=== PATIENT | female | born 1995 | race Asian ===

== ENCOUNTER 2020-03-01 16:17 | Emergency (ER) | payer OTHER ==
[2020-03-01 16:55] LABS: GLUCOSE, URINE (UA) NEGATIVE (NEGATIVE); KETONES,URINE (UA) NEGATIVE (NEGATIVE); LEUKOCYTE ESTERASE, URINE MODERATE (NEGATIVE); NITRITE,URINE POSITIVE (NEGATIVE); OCCULT BLOOD,URINE LARGE (NEGATIVE); PROTEIN,URINE >=300 mg/dL (NEGATIVE); UROBILINOGEN,URINE 2 E.U./dL (NORMAL)
[2020-03-01 17:05] LABS: BILIRUBIN,URINE NEGATIVE (NEGATIVE); ICTOTEST,URINE NEGATIVE
[2020-03-01 17:06] LABS: BACTERIA,URINE Rare /HPF (None Seen); CLARITY,URINE BLOODY (CLEAR); HCG UR QUAL POSITIVE; RBC,URINE TNTC /HPF (0-5); SQUAMOUS EPITHELIAL CELL,UR RARE Squamous (<= Few)
--- NOTE | 2020-03-01 17:58 | ED Physician Documentation ---
PD HPI FEMALE - Stated complaint Stated Complaint: BLOOD IN URINE/15 WKS - Chief complaint Chief Complaint: Abd Pain - History obtained from History obtained from: Patient - History of Present Illness Timing - onset: Yesterday Timing - details: Abrupt onset, Still present Associated symptoms: Back pain (mild low back), Dysuria, Urinary frequency. No: Fever, Vaginal bleeding, Vaginal discharge Contributing factors: (15 weeks), Sexually active Similar symptoms before: Has not had sx before Recently seen: Not recently seen Review of Systems Constitutional: denies: Fever, Chills Nose: denies: Rhinorrhea / runny nose, Congestion Throat: denies: Sore throat Respiratory: denies: Cough GI: reports: Nausea (through the ). denies: Vomiting, Diarrhea : reports: Dysuria, Frequency. denies: Discharge, Vaginal bleeding PD PAST MEDICAL HISTORY - Past Medical History Past Medical History: No - Present Medications Home Medications: Ambulatory Orders Medication Instructions Recorded Confirmed Cephalexin [Keflex] 500 mg PO Q6H #24 capsule 03/01/20 Phenazopyridine HCl [Pyridium] 100 mg PO TID PRN #15 tablet 03/01/20 - Allergies Allergies/Adverse Reactions: Allergies Allergy/AdvReac Type Severity Reaction Status Date / Time No Known Drug Allergies Allergy Verified 03/01/20 16:31 PD ED PE NORMAL - Vitals Vital signs reviewed: Yes - General General: Alert and oriented X 3, No acute distress, Well developed/nourished - Cardiac Cardiac: RRR - Respiratory Respiratory: Clear bilaterally - Abdomen Abdomen: Soft, Non tender, Other (bedside U/S showing normal IUP with size for dates, and active movement, good FHB.) - Female Female : Deferred - Rectal Rectal: Deferred - Back Back: No CVA TTP - Derm Derm: Normal color, Warm and dry Results - Vitals Vitals: Vital Signs - 24 hr 03/01/20 03/01/20 16:31 18:17 Temperature 37.1 C Heart Rate 88 81 Respiratory 16 18 Rate Blood Pressure 132/69 H 128/64 O2 Saturation 100 99 Oxygen O2 Source Room air - Labs Labs: Microbiology 03/01/20 16:40 Urine Culture - Preliminary Urine,Clean Catch CULTURE IN PROGRESS. RESULTS TO FOLLOW. Laboratory Tests 03/01/20 16:40 Urine Color BROWN Urine Clarity BLOODY Urine pH 8.0 H Ur Specific [place] 1.020 Urine Protein >=300 H Urine Glucose (UA) NEGATIVE Urine Ketones NEGATIVE Urine Occult Blood LARGE H Urine Nitrite POSITIVE H Urine Bilirubin NEGATIVE Urine Urobilinogen 2 H Ur Leukocyte Esterase MODERATE H Urine RBC TNTC H Urine WBC 6-10 H Ur Squamous Epith Cells RARE Squamous Urine Bacteria Rare Ur Microscopic Review INDICATED Urine Culture Comments INDICATED Urine HCG, Qual POSITIVE Departure - Departure Disposition: 01 Home, Self Care Clinical Impression: UTI (urinary tract infection) Qualifiers: Urinary tract infection type: acute cystitis Hematuria presence: with hematuria Qualified Code(s): N30.01 - Acute cystitis with hematuria Qualifiers: Weeks of gestation: 15 weeks Qualified Code(s): Z3A.15 - 15 weeks gestation of Condition: Stable Record reviewed to determine appropriate education?: Yes Instructions: ED UTI Cystitis Female Follow-Up: Evita Vera MD [Primary Care Provider] - Prescriptions: Cephalexin [Keflex] 500 mg PO Q6H #24 capsule Phenazopyridine HCl [Pyridium] 100 mg PO TID PRN #15 tablet PRN Reason: Abdominal Pain Comments: Stay well-hydrated. Continue your usual medications. Cephalexin antibiotic for 6 more days for urinary tract infection. You can use phenazopyridine 3 times a day if needed for urinary discomfort while the infection is clearing. Tylenol if needed for pains or fevers. Recheck if not improving well over the next couple of days and return if worsening. Your baby appeared good on bedside ultrasound with normal heartbeat and movement. Discharge Date/Time: 03/01/20 18:18
[2020-03-01] MEDS ORDERED: cephALEXin 250 MG CAPSULE PO STA (18:04)
[2020-03-01] MEDS ORDERED: ACETAMINOPHEN 325 MG TABLET PO STA (18:06)
[2020-03-01] MEDS ORDERED: PHENAZOPYRIDINE 100 MG TABLET PO STA (18:06)
[2020-03-01 18:18] VITALS: BP 128/64
== END 2020-03-01 18:18 | disposition home or self-care (01) ==
LOC: ED 16:17
DX: O23.12 Infections of bladder in pregnancy, second trimester (principal); Z3A.15 15 weeks gestation of pregnancy
CPT/HCPCS: 81001; 81025; 87086; 99283; 99284; A9270; 81003